=== PATIENT | male | born 1980 | race Hispanic/Latino ===

== ENCOUNTER 2018-01-13 10:31 | Emergency (ER) | payer SELFPAY ==
[2018-01-13] MEDS ORDERED: CATAPRES ONE (10:43)
[2018-01-13] MEDS ORDERED: CATAPRES PO ONE (10:53)
--- NOTE | 2018-01-13 11:31 | XRay Report ---
ROUTINE CHEST, TWO VIEWS: HISTORY: Chest pain, shortness of breath. The trachea, heart, mediastinal contour, lung spear and bony thorax are unremarkable. IMPRESSION: Unremarkable chest x-ray.
[2018-01-13 11:35] LABS: Basophils # (Auto) 0.1 K/mm3 (0.0-0.1); Basophils % (Auto) 0.7 % (0.0-1.8); Eosinophils # (Auto) 0.1 K/mm3 (0.0-0.4); Hematocrit 42.8 % (35.5-45.6); Hemoglobin 14.6 gm/dl (11.8-15.2); Lymphocytes # (Auto) 1.9 K/mm3 (1.2-5.4); Lymphocytes % (Auto) 16.3 % (13.4-35.0); Mean Corpuscular HGB Conc 34 % (32-34); Mean Corpuscular Hemoglobin 29 pg (28-32); Mean Corpuscular Volume 85 fl (84-94); Monocytes # (Auto) 0.8 K/mm3 (0.0-0.8); Monocytes % (Auto) 6.9 % (0.0-7.3); Platelet Count 274 K/mm3 (140-440); Red Blood Count 5.06 M/mm3 (3.65-5.03); Red Cell Distribution Width 14.3 % (13.2-15.2)
[2018-01-13 11:52] LABS: BUN/Creatinine Ratio 13; Blood Urea Nitrogen 10 mg/dL (9-20); Calcium 8.9 mg/dL (8.4-10.2); Hemolysis Index 53
[2018-01-13 16:51] VITALS: BP 186/109
== END 2018-01-13 13:00 | disposition left against medical advice (07) ==
LOC: ED 10:31
DX: R07.9 Chest pain, unspecified (principal); Z53.21 Procedure and treatment not carried out due to patient leaving prior to being seen by health care provider
CPT/HCPCS: 36415; 71046; 80048; 84484; 85025; 85379; 93005; 93010